=== PATIENT | male | born 1975 | race Two or more races ===

== ENCOUNTER 2019-02-05 07:10 | Day surgery (SDC) | payer OTHER ==
[2019-02-05] MEDS ORDERED: NEURONTIN300 MG PO (10:50)
[2019-02-05] MEDS ORDERED: PERCOCET 5-3251 EACH PO (10:50)
[2019-02-05] MEDS ORDERED: KETOROLAC TROME10 MG PO (10:51)
[2019-02-05] MEDS ORDERED: RECTICARE30 GM TOP (10:51)
== END 2019-02-05 17:30 | disposition home or self-care (01) ==
LOC: CIR.AMB 07:10
DX: K64.8 Other hemorrhoids (principal); K64.4 Residual hemorrhoidal skin tags